=== PATIENT | female | born 2000 | race Caucasian/White ===

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

== ENCOUNTER 2018-04-20 12:29 | Emergency (ER) | payer BC ==
[2018-04-20 12:52] VITALS: BP 120/78
--- NOTE | 2018-04-20 13:39 | UC ---
Skin Complaint HPI - HPI Summary HPI Summary: 17-year-old otherwise healthy female presents with rash in her left leg and soreness throughout that leg. She states that 2 days ago she awoke with soreness and rash in her lateral leg. Since that point she is developing a lot of soreness mostly in the groin in the knee area. She does not report seeing any insects and went to bed without any lesions. She denies any fever, shakes or chills and any recent sexual activity. She has no genital lesions. There is been no swelling to her knee. - History of Current Complaint Chief Complaint: UCSkin Time Seen by Provider: 04/20/18 12:46 Stated Complaint: INSECT BITE/LEFT LEG Hx Obtained From: Patient Hx Last Menstrual Period: 04/02/18 Pain Intensity: 0 - Allergy/Home Medications Allergies/Adverse Reactions: Allergies Allergy/AdvReac Type Severity Reaction Status Date / Time nitrofurantoin Allergy Vomiting Verified 04/20/18 12:53 [From Macrobid] Review of Systems Constitutional: Negative Skin: Rash Motor: Other - Tenderness without swelling in the hip and knee Neurovascular: Negative All Other Systems Reviewed And Are Negative: Yes PMH/Surg Hx/FS Hx/Imm Hx Previously Healthy: Yes Other History Of: Negative For: HIV, Hepatitis B, Hepatitis C, Anticoagulant Therapy - Surgical History Surgical History: Yes Surgery Procedure, Year, and Place: Stomach surgery x 2: Jayme procedures at 14 mos and 4 yrs of age. hernia 2004 - Family History Known Family History: Positive: Hypertension, Diabetes, Other - Dad with migraines Negative: Cardiac Disease - Social History Occupation: Student Alcohol Use: None Substance Use Type: None Smoking Status (MU): Never Smoked Tobacco - Immunization History Vaccination Up to Date: Yes Physical Exam Triage Information Reviewed: Yes Appearance: Well-Appearing, No Pain Distress, Well-Nourished Vital Signs: Initial Vital Signs Temp 98.2 F 04/20/18 12:47 Pulse 72 04/20/18 12:47 Resp 16 04/20/18 12:47 BP 120/78 04/20/18 12:47 Pulse Ox 100 04/20/18 12:47 Vital Signs Reviewed: Yes Eyes: Positive: Conjunctiva Clear ENT: Positive: Normal ENT inspection Neck: Positive: Other: - No inguinal lymphadenopathy Respiratory: Positive: Lungs clear Cardiovascular: Positive: RRR Musculoskeletal Exam: Other - Rashes indicated below the left thigh. No joint effusion. Normal gait. No lymphadenopathy or tenderness to palpation. Neurological Exam: Normal Skin: Positive: Other - Confluent area of 1 cm across erythematous raised plaques with central vesicle. The first area of confluence lesions is in the left lower lateral thigh and the second is in the medial upper left thigh Course/Dx - Course Course Of Treatment: Cultures were obtained by rupturing to the tiny vesicles. A bacterial and viral culture were obtained. A discussed the case with Manny from Dr. Palm's dermatology office. They will provide follow-up and agree on my initial treatment of doxycycline, Valtrex. Patient will take Tylenol, ibuprofen as needed for discomfort. - Differential Diagnoses - Skin Complaint Differential Diagnoses: Other - HSV, VZV, contact dermatitis, insect bite, hypersensitivity reaction - Diagnoses Provider Diagnoses: Vesicular Dermatitis of the left leg - Physician Notification/Consults Discussed Patient Care With: Edith Palm - spoke with the PA Manny Crowder who agrees at tx and will f/u Discharge - Sign-Out/Discharge Documenting (check all that apply): Patient Departure All imaging exams completed and their final reports reviewed: No Studies - Discharge Plan Condition: Improved Disposition: HOME Prescriptions: DOXYcycline CAP(*) [DOXYcycline 100MG CAP(*)] 100 mg PO BID #14 cap ValACYclovir (*) [Valtrex 1 GM(*)] 1 gm PO TID #21 tab Patient Education Materials: Dermatitis (ED) Referrals: Renzo Mccaeb MD [Primary Care Provider] - Edith Palm [Medical Doctor] - Additional Instructions: Tylenol, ibuprofen as needed for discomfort. Return with fever, worse, new symptoms or other concerns. Call the senior civil engineer today to schedule prompt follow-up. Culture of the fluid was sent and will take several days to return. - Billing Disposition and Condition Condition: IMPROVED Disposition: Home - Attestation Statements Document Initiated by Scribe: No
--- NOTE | 2018-04-22 07:05 | UC ---
- Progress Note Progress Note: wound no growth day 1 no change Ljj 04/22/2018 Discharge - Sign-Out/Discharge Documenting (check all that apply): Post-Discharge Follow Up All imaging exams completed and their final reports reviewed: No Studies - Discharge Plan Condition: Improved Disposition: HOME Prescriptions: DOXYcycline CAP(*) [DOXYcycline 100MG CAP(*)] 100 mg PO BID #14 cap ValACYclovir (*) [Valtrex 1 GM(*)] 1 gm PO TID #21 tab Patient Education Materials: Dermatitis (ED) Referrals: Renzo Mccabe MD [Primary Care Provider] - Edith Palm [Medical Doctor] - Additional Instructions: Tylenol, ibuprofen as needed for discomfort. Return with fever, worse, new symptoms or other concerns. Call the bilingual medical assistant today to schedule prompt follow-up. Culture of the fluid was sent and will take several days to return. - Billing Disposition and Condition Condition: IMPROVED Disposition: Home
== END 2018-04-20 13:47 | disposition home or self-care (01) ==
LOC: UCCORT 12:29
DX: L30.8 Other specified dermatitis (principal); Z88.1 Allergy status to other antibiotic agents
CPT/HCPCS: 87070; 87205; 87252; 87529; 87798; 99212; G0463

== ENCOUNTER 2018-12-07 14:03 | Emergency (ER) | payer BC ==
[2018-12-07 15:30] VITALS: BP 117/70
--- NOTE | 2018-12-07 16:17 | UC ---
Headache HPI - HPI Summary HPI Summary: Per patient access: "Has been having dizzy spells followed by a headache and feeling weird and sort of disoriented -- about once daily for the past 5 days." -here w/ her Mom -dizziness is room spinning. sudden onset. occurs every day this week. lasts seconds to 1-2 mins. then feels out of it for a few seconds to a minute. then the MARIE starts. rt parietal and frontal -denies h/o migraines. Dad gets migraines and severe sinus infections. -she has ovarian cysts and was recently changed to pascual control 2-3 wks ago. -no diplopia. no w/n/t. no weakness. -MARIE never starts until the dazed feeling goes away -denies -good historian -took ibuprofen 600mgs last night after severe MARIE w/ some relief adn went to sleep. woke up with a MAREI this AM and took 600msg ibuprofen w/ some relief -no nausea/vomiting -lights and noises dont make it worse - History Of Current Complaint Chief Complaint: UCGeneralIllness Stated Complaint: DIZZY, HEADACHE Time Seen by Provider: 12/07/18 15:57 Hx Last Menstrual Period: [id number] Pain Intensity: 3 - Allergies/Home Medications Allergies/Adverse Reactions: Allergies Allergy/AdvReac Type Severity Reaction Status Date / Time nitrofurantoin Allergy Vomiting Verified 12/07/18 15:31 [From Macrobid] dye for CT scan Allergy Swelling Uncoded 12/07/18 15:31 Of Face,Lips,& Throat Home Medications: Home Medications Ethinyl Estradiol/Drospirenone [Pascual 28 Tablet (Nf)] 1 each PO DAILY 12/07/18 [ History Confirmed 12/07/18] PMH/Surg Hx/FS Hx/Imm Hx Previously Healthy: No Other History Of: Negative For: HIV, Hepatitis B, Hepatitis C, Anticoagulant Therapy - Surgical History Surgical History: Yes Surgery Procedure, Year, and Place: Stomach surgery x 2: Jayme procedures at 14 mos and 4 yrs of age. hernia repair 2004 - Family History Known Family History: Positive: Hypertension, Diabetes, Other - Dad with migraines Negative: Cardiac Disease - Social History Alcohol Use: None Substance Use Type: None Smoking Status (MU): Never Smoked Tobacco - Immunization History Vaccination Up to Date: Yes Review of Systems All Other Systems Reviewed And Are Negative: Yes Constitutional: Positive: Negative. Negative: Fever Skin: Positive: Negative Eyes: Positive: Negative ENT: Positive: Negative. Negative: Sore Throat, Ear Ache, Sinus Congestion, Sinus Pain/Tenderness Respiratory: Positive: Negative Cardiovascular: Positive: Negative Gastrointestinal: Positive: Negative Genitourinary: Positive: Negative Motor: Positive: Negative Neurovascular: Negative: Decreased Sensation, Decreased Pulses Musculoskeletal: Positive: Negative Neurological: Positive: Headache Psychological: Positive: Negative Is Patient Immunocompromised?: No Physical Exam Triage Information Reviewed: Yes Appearance: Well-Appearing, No Pain Distress, Well-Nourished - valid historian. Vital Signs: Initial Vital Signs Temp 97.8 F 12/07/18 15:22 Pulse 68 12/07/18 15:22 Resp 16 12/07/18 15:22 BP 117/70 12/07/18 15:22 Pulse Ox 100 12/07/18 15:22 Vital Signs Reviewed: Yes Eye Exam: Normal Eyes: Positive: Other: - Cr III-XII intact. no nystagmus. ENT Exam: Normal ENT: Positive: Pharynx normal, TMs normal, Uvula midline, Other - head tender over right parietal area after acute onset of MARIE while I was ion exam room.. Negative: Pharyngeal erythema, Nasal congestion, TM bulging, TM dull, TM red, Sinus tenderness Neck exam: Normal Neck: Positive: Supple, Nontender, No Lymphadenopathy Respiratory Exam: Normal Respiratory: Positive: Lungs clear, Normal breath sounds, No respiratory distress, No accessory muscle use Cardiovascular Exam: Normal Cardiovascular: Positive: RRR, No Murmur Abdominal Exam: Normal Abdomen Description: Positive: Soft Musculoskeletal Exam: Normal Musculoskeletal: Positive: Strength Intact, ROM Intact Neurological Exam: Normal Neurological: Positive: Alert, Other: - cerebellar signs neg. neg pronator drift. neg rhomberg. nml tandem gait. nml toe and heel walk and single leg hop b /l. Psychological Exam: Normal Skin Exam: Normal Skin: Negative: Rashes Headache Course/Dx - Course Course Of Treatment: -pt experienced episode while I was in exam room. sx did not last long and then MARIE started. that is whne her right pareital area was tender, but frontal area was not. -we discussed the WHO 2011 recommendations of contraindication of combined OCPs in pts w/ migraines b/c increased risk of CVA. she has had a difficult time w/ ovarian cysts and requires BC to help. I recommend that she have eval by neurologist and w/ FOOD SERVICE AMBASSADOR to discuss other options. she would not want implant. we did disc IUD as well. However, this conversation should be continued w/ FOOD SERVICE AMBASSADOR, PCP , neurologist. -Urine HCG -CT head: "CT of the brain performed without IV contrast. Ventricular structures are midline. No midline shift is noted. The extraction spaces are unremarkable. There is no evidence of intracranial mass or hemorrhage. No other high or low density lesions are identified. Air-fluid levels are noted in the maxillary sinuses bilaterally consistent with acute sinusitis. IMPRESSION: No intracranial mass or hemorrhage is noted. Acute sinusitis involving the maxillary sinuses bilaterally." - Differential Dx/Diagnosis Differential Diagnosis/HQI/PQRI: CVA, TIA, Migraine, Sinus Headache Provider Diagnosis: Sinusitis, Migraine aura, persistent Discharge - Sign-Out/Discharge Documenting (check all that apply): Patient Departure All imaging exams completed and their final reports reviewed: Yes - Discharge Plan Condition: Stable Disposition: HOME Prescriptions: Cefdinir [Cefdinir 300 MG CAP] 300 mg PO BID #20 capsule Patient Education Materials: Sinusitis (ED), Migraine Headache (ED) Referrals: Fei Xavier MD [Medical Doctor] - 2 Weeks Renzo Mccabe MD [Primary Care Provider] - 1 Week Additional Instructions: -Make sure to take a probiotic daily while on antibiotics to help prevent a potential complication of antibiotic use called c diff. Some well known brands that can be found OTC are florastor, align and Xambala. Make sure to complete the entire prescription unless advised otherwise by your health care provider. -make sure you finish your antibiotics. You should have the antibiotic extended if your symptoms have not completely resolved. -Antibiotics can decrease the efficacy of your control. -CT brain showed sinusitis of sinuses of your cheek area. -You should be evaluated by a neurologist for evaluation for migraine with aura. -If you are diagnosed with migraine, which I believe you do have, you need to discuss control options with your FOOD SERVICE AMBASSADOR. The World health Organization in 2011 deemed estrogen/progesterone combination control pills a complete contraindication in people who have migraines w/ aura b/c increased risk of stroke. There is still recommendation against combined control in patients w/ migarine w/o aura. -You should go to the ER with any worsening symptoms. - Billing Disposition and Condition Condition: STABLE Disposition: Home
[2018-12-07] MEDS ORDERED: Ibuprofen TAB* 600 MG PO ONE (16:28)
== END 2018-12-07 18:05 | disposition home or self-care (01) ==
LOC: UCCORT 14:03
DX: J32.9 Chronic sinusitis, unspecified (principal); G43.509 Persistent migraine aura without cerebral infarction, not intractable, without status migrainosus; Z88.1 Allergy status to other antibiotic agents; Z91.041 Radiographic dye allergy status
CPT/HCPCS: 70450; 81003; 84702; 87086; 99212; A9270-GY; G0463

== ENCOUNTER 2019-09-26 12:57 | Emergency (ER) | payer BC ==
[2019-09-26 14:09] VITALS: BP 108/71
--- OUTSIDE RECORDS SUMMARY | 2019-09-26 15:12 | XMS REPORT ---
:2000 Author Organization [facility] Address [address] [place] [address] Care Team Providers Name Role Phone Lisa London Unavailable Unavailable PROBLEMS Type Condition ICD9-CM [id number] Onset Condition SNOMED Code Code Code Dates Status Problem Family history Z80.3 Active 087636240 of malignant neoplasm of breast Problem Postcoital and N93.0 Active 22692174 contact bleeding Problem Mastodynia N64.4 Active 65220970 Problem Unspecified N83.202 Active [id number] ovarian cyst, left side Problem Other specified N94.19 Active 19743914 dyspareunia Problem Other specified N92.5 Active 54302816 irregular menstruation Problem Unspecified lump N63.24 Active 623714202 in the left breast, lower inner quadrant Problem Oligomenorrhea, N91.5 Active 70948371 unspecified Problem Excessive and N92.1 Active 73085882 frequent menstruation with irregular cycle Problem Other ovarian N83.292 Active [id number] cyst, left side Problem Unspecified N83.201 Active [id number] ovarian cyst, right side ALLERGIES No Information ENCOUNTERS Encounter Location Date Diagnosis [facility] [address] Jan, OBGYN [place], [place] [id number] [facility] [address] Dec, OBGYN [place], [place] [id number] [facility] [address] Oct, OBGYN [facility], [place] [id number] [facility] [address] Oct, Encounter for OBGYN [facility], contraceptive management, [place] [id number] unspecified Z30.9 [facility] 103 Oct, Unspecified ovarian cyst, OBGYN [facility], right side N83.201 ; [place] [id number] Unspecified ovarian cyst, left side N83.202 and Other specified irregular menstruation N92.5 [facility] 103 Oct, Other ovarian cyst, left OBGYN [facility], side N83.292 and [place] [id number] Unspecified ovarian cyst, right side N83.201 [facility] Sep, Other ovarian cyst, left OBGYN [facility], side N83.292 and [place] [id number] Unspecified ovarian cyst, right side N83.201 [facility] 103 Sep, OBGYN [facility], [place] [id number] [facility] 103 Sep, Other ovarian cyst, left OBGYN [facility], side N83.292 [place] [id number] [facility] Jul, Excessive and frequent OBGYN [facility], menstruation with [place] [id number] irregular cycle N92.1 and Other ovarian cyst, left side N83.292 [facility] 103 Jul, Excessive and frequent OBGYN [facility], menstruation with [place] [id number] irregular cycle N92.1 [facility] 103 Jul, Excessive and frequent OBGYN [facility], menstruation with [place] [id number] irregular cycle N92.1 [facility] 103 May, OBGYN [facility] [place] [id number] [facility] [address] [place] [address] May, Encounter for OBGYN [address] [place], test, result negative [place] [id number] Z32.02 and Oligomenorrhea, unspecified N91.5 [facility] Feb, Postcoital and contact OBGYN [facility], bleeding N93.0 ; Other [place] [id number] specified dyspareunia N94.19 and Mastodynia N64.4 [facility] 103 Feb, Postcoital and contact OBGYN [facility], bleeding N93.0 and Other [place] [id number] specified dyspareunia N94.19 [facility] Jan, Postcoital and contact OBGYN [facility], bleeding N93.0 ; Family [place] [id number] history of malignant neoplasm of breast Z80.3 ; Mastodynia N64.4 ; Unspecified lump in the left breast, lower inner quadrant N63.24 ; Other specified dyspareunia N94.19 and Noninflammatory disorder of vulva and perineum, unspecified N90.9 [facility] [address] Jan, Encounter for OBGYN [facility], gynecological examination [place] [id number] (general) (routine) with abnormal findings Z01.411 ; Postcoital and contact bleeding N93.0 ; Family history of malignant neoplasm of breast Z80.3 ; Mastodynia N64.4 ; Unspecified lump in the left breast, lower inner quadrant N63.24 ; Other specified dyspareunia N94.19 and Encounter for contraceptive management, unspecified Z30.9 IMMUNIZATIONS No Known Immunizations SOCIAL HISTORY Never Assessed REASON FOR REFERRAL FUNCTIONAL STATUS PLAN OF CARE VITAL SIGNS MEDICATIONS Unknown Medications PROCEDURES No Known procedures RESULTS No Results REASON FOR VISIT 02/2019 Insurance Providers [facility] Health Member Patient Patient Patient Patient Patient Subscriber Subscriber Subscriber Group Insurance Plan Plan Plan Plan ID Relationship Address Phone Name Date of ID Name Date of No Type Insurance Insurance Insurance Coverage to Subscriber Address Phone Name Dates Chris Lerner [phone] Chris Sullivan [id number] [place] [id number] [address] Cross/Ever JETER Cross/Ever [facility] [id number] [facility] MEDICAL (GENERAL) HISTORY Type Description Date Surgical History femoral hernia repair 2003 Surgical History arsalan fundoplication 2003 Hospitalization History see above
[2019-09-26 15:59] LABS: Influenza A Molecular Negative (Negative); Influenza B Molecular Negative (Negative)
[2019-09-26] MEDS ORDERED: Ibuprofen TAB* 600 MG PO ONE (16:03)
--- NOTE | 2019-09-26 16:21 | UC ---
FLU HPI - HPI Summary HPI Summary: 19-year-old female presents with 3 day history of general malaise, fatigue, body aches, low-grade fever, nasal congestion, runny nose, mild sore throat, mild chest tightness with deep breath, and a dry nonproductive cough. Max temperature 100.4 F. No recent travel. Denies ear pain, dysphagia, chest pain, shortness of breath, abdominal pain, nausea, vomiting, or diarrhea. - History of Current Complaint Chief Complaint: UCGeneralIllness Stated Complaint: FLU SYMP Time Seen by Provider: 09/26/19 15:55 Hx Obtained From: Patient Hx Last Menstrual Period: 964029 Pain Intensity: 0 - Allergy/Home Medications Allergies/Adverse Reactions: Allergies Allergy/AdvReac Type Severity Reaction Status Date / Time nitrofurantoin Allergy Vomiting Verified 09/26/19 14:09 [From Macrobid] dye for CT scan Allergy Swelling Uncoded 09/26/19 14:09 Of Face,Lips,& Throat Home Medications: Home Medications Fluconazole 150 MG TAB* [Diflucan 150 MG TAB*] 150 mg PO ONCE 09/26/19 [History Confirmed 09/26/19] Iud 09/26/19 [History] PMH/Surg Hx/FS Hx/Imm Hx Previously Healthy: Yes - Denies significant PMH Other History Of: Negative For: HIV, Hepatitis B, Hepatitis C, Anticoagulant Therapy - Surgical History Surgical History: Yes Surgery Procedure, Year, and Place: Stomach surgery x 2: [facility]me procedures at 14 mos and 4 yrs of age. hernia repair 2004 - Family History Known Family History: Positive: Hypertension, Diabetes, Other - Dad with migraines Negative: Cardiac Disease - Social History Occupation: Student Lives: Dormitory/Roommates Alcohol Use: Occasionally Substance Use Type: None Smoking Status (MU): Never Smoked Tobacco - Immunization History Vaccination Up to Date: Yes Review of Systems All Other Systems Reviewed And Are Negative: Yes Constitutional: Positive: Fever, Fatigue Eyes: Negative: Drainage, Eye Redness ENT: Positive: Sore Throat, Nasal Discharge, Sinus Congestion. Negative: Ear Ache, Sinus Pain/Tenderness Respiratory: Positive: Cough. Negative: Shortness Of Breath Cardiovascular: Negative: Palpitations, Chest Pain Gastrointestinal: Negative: Abdominal Pain, Vomiting, Diarrhea, Nausea Genitourinary: Positive: Negative Musculoskeletal: Positive: Negative Neurological/Mental Status: Positive: Negative Is Patient Immunocompromised?: No Physical Exam - Summary Physical Exam Summary: GENERAL APPEARANCE: Well developed, well nourished, alert and cooperative, and appears to be in no acute distress. EYES: Conjunctiva clear. No drainage. EARS: External auditory canals and tympanic membranes clear, hearing grossly intact. NOSE: Mild to moderate nasal congestion with clear discharge. THROAT: Mild pharyngeal erythema. No tonsilar inflammation, swelling, exudate, or lesions. Uvula midline. NECK: Neck supple, non-tender without lymphadenopathy. CARDIAC: Normal S1 and S2. No S3, S4 or murmurs. Rhythm is regular. There is no peripheral edema, cyanosis or pallor. Extremities are warm and well perfused. Capillary refill is less than 2 seconds. Peripheral pulses intact. LUNGS: Clear to auscultation without rales, rhonchi, wheezing or diminished breath sounds. Dry nonproductive cough. ABDOMEN: Positive bowel sounds. Soft, nondistended, nontender. No guarding or rebound. No masses or hepatosplenomegally. MUSKULOSKELETAL: ROM intact to all extremities. No joint erythema or tenderness. Normal muscular development. Normal gait. SKIN: Skin normal color, texture and turgor with no lesions or eruptions. Triage Information Reviewed: Yes Vital Signs: Initial Vital Signs Temp 99.0 F 09/26/19 14:05 Pulse 90 09/26/19 14:05 Resp 18 09/26/19 14:05 BP 108/71 09/26/19 14:05 Pulse Ox 100 09/26/19 14:05 Vital Signs Reviewed: Yes Flu Course/Dx - Course Course Of Treatment: 19-year-old female presents with 3 day history of general malaise, fatigue, body aches, low-grade fever, nasal congestion, runny nose, mild sore throat, mild chest tightness with deep breath, and a dry nonproductive cough. Max temperature 100.4 F. No recent travel. Denies ear pain, dysphagia, chest pain, shortness of breath, abdominal pain, nausea, vomiting, or diarrhea. Afebrile. Vital signs stable. The patient has dwdi-ol-pahsuuyo nasal congestion, normal TMs, pharyngeal erythema without tonsillar swelling or exudate, no cervical lymphadenopathy, clear bilateral breath sounds, dry nonproductive cough, and otherwise unremarkable exam. Rapid flu test was negative. Reviewed results with the patient. Recommending symptomatic treatment for a viral URI. She is to follow-up with primary care provider in 5-7 days if symptoms persist. Anticipatory guidance and warning symptoms were reviewed of the patient. Verbalizes understanding and agrees with plan of care. - Differential Dx/Diagnosis Differential Diagnosis/HQI/PQRI: Bronchitis, Influenza, Pneumonia, Upper Respiratory Infection Provider Diagnosis: Viral upper respiratory infection Discharge ED - Sign-Out/Discharge Documenting (check all that apply): Patient Departure All imaging exams completed and their final reports reviewed: No Studies - Discharge Plan Condition: Stable Disposition: HOME Patient Education Materials: Upper Respiratory Infection (ED) Referrals: Renzo Mccabe MD [Primary Care Provider] - 5 Days Additional Instructions: Your history and exam are consistent with a viral upper respiratory infection. Viral infections do not respond to antibiotics and are limited to the treatment of symptoms. Viral infections typically run their course in 7-10 days. Drink plenty of fluids to avoid dehydration especially if you are running any fever. Use a saline rinse kit such as Neti Pot or NeilMed at least twice a day to help thin secretions and promote drainage of the sinuses. Use fluticasone (Flonase) nasal spray 2 sprays each nostril once daily. Use an zxan-hiv-tlcyevm decongestant such as Sudafed according to directions to help with the congestion. Take over the counter acetaminophen (Tylenol) or ibuprofen (Advil, Motrin) according to directions as needed for pain or fever. Use salt water gargles several times a day if you have a sore throat. You may also use Chloraseptic spray or Cepacol lonzenges according to directions which contain a numbing medication and can provide some temporary relief from your sore throat. Follow up with your primary care provider in 5-7 days if symptoms persist. Seek immediate medical attention in the emergency room if you have fever greater than 100.5 F despite taking acetaminophen or ibuprofen, have chest pain , difficulty breathing, are unable to swallow, or have any worsening of symptoms. - Billing Disposition and Condition Condition: STABLE Disposition: Home - Attestation Statements Provider Attestation: This patient was not seen by me. I was available for consult. Chart reviewed. WALDO
== END 2019-09-26 16:37 | disposition home or self-care (01) ==
LOC: UCCORT 12:57
DX: J06.9 Acute upper respiratory infection, unspecified (principal); Z88.1 Allergy status to other antibiotic agents; Z91.041 Radiographic dye allergy status
CPT/HCPCS: 99212; A9270-GY; G0463